=== PATIENT | male | born 2000 | race Caucasian/White ===

== ENCOUNTER 2019-01-31 13:12 | Emergency (ER) | payer OTHER, SELFPAY ==
[~2019-01-31] VITALS: Ht 185.4 cm; Wt 57.0 kg
[2019-01-31 16:07] VITALS: BP 106/72
== END 2019-01-31 16:08 | disposition home or self-care (01) ==
LOC: ED 14:28
DX: K40.90 Unilateral inguinal hernia, without obstruction or gangrene, not specified as recurrent (principal); R10.32 Left lower quadrant pain; R19.7 Diarrhea, unspecified
CPT/HCPCS: 36415; 74021; 80053; 81003; 83605; 83690; 85025; 99284; Q0162